=== PATIENT | female | born 1940 | race Caucasian/White ===

== ENCOUNTER 2021-09-09 18:32 | Emergency (ER) | payer MEDICARE, SELFPAY ==
--- NOTE | ~2021-09-09 | XR_ITS ---
EXAMINATION: XR wrist RT min 3V EXAM DATE: 09/09/2021 18:56 INDICATION: Fall, Radial Pain . Initial encounter. TECHNIQUE: Right wrist frontal, frontal with ulnar deviation, oblique and lateral projections obtain ed and reviewed. Comparison is made to prior examination from 09/22/1979. FINDINGS: Right wrist scapholunate joint space is maintained. Acute closed posttraumatic mildly comminuted right radial distal metaphyseal fracture into the distal radial ulnar joint and the radiocarpal joint. There is mild posterior angulation. There is overlying soft tissue swelling. There is acute ulnar styloid base avulsion fracture with about 3 mm distraction. There is overlying s oft tissue swelling. Triangular fibrocartilage calcification. Chondrocalcinosis can be an age related finding, but with ot her possible etiologies including CPPD, parathyroid disorders, hemochromatosis, gout. There is modera te to severe 1st carpometacarpal joint primary osteoarthritis. IMPRESSION: 1. Acute comminuted right distal radial metaphyseal intra-articular fracture. 2. Acute ulnar styloid avulsion fracture. Reviewed, dictated and finalized at location [facility]
[2021-09-09 18:42] VITALS: BP 188/91; PULSE 75; RESP 14; TEMP 36.8; O2SAT 97
--- NOTE | 2021-09-09 18:45 | ED.UPPEXIN ---
HPI - Extremity Injury (Upper) General Chief Complaint: Extremity Injury, Upper Stated Complaint: Right wrist injury Time Seen by Provider: 09/09/21 18:45 Source: patient, family and RN notes reviewed History of Present Illness HPI narrative: Patient is an 81-year-old female who presents the urgent care with a family member with complaints of right wrist injury due to fall at 6 PM this evening. Patient states that she fell against a doorway attempting to catch herself and is having increased pain and swelling of the right wrist. Patient has been wearing a sling. Denies of hitting her head or any loss of consciousness. No other complications from the fall. Patient aware of the plan of care. Some parts of this dictation were generated by voice recognition software and may contain typographical and/or grammatical inaccuracies. Related Data Home Medications Medication Instructions Recorded Confirmed albuterol sulfate 2 puff INHALATION Q4H PRN 09/09/21 09/09/21 atorvastatin 10 mg PO DAILY 09/09/21 09/09/21 carbidopa-levodopa 1 tablet PO .5 X DAILY 09/09/21 09/09/21 gabapentin 100 mg PO TID 09/09/21 09/09/21 lisinopril 40 mg PO DAILY 09/09/21 09/09/21 meloxicam 7.5 mg PO DAILY 09/09/21 09/09/21 olmesartan 40 mg PO DAILY 09/09/21 09/09/21 theophylline 400 mg PO DAILY 09/09/21 09/09/21 Allergies Allergy/AdvReac Type Severity Reaction Status Date / Time propoxyphene [From Darvon] Allergy Mild Rash Verified 09/09/21 18:56 Review of Systems Review of Systems: CONSTITUTIONAL: Denies fever, chills, or sweats. EYES: Denies visual changes, redness, or discharge. ENT: Denies rhinorrhea, congestion, sore throat, or otalgia. CARDIOVASCULAR: Denies chest pain, palpitations, or edema. RESPIRATORY: Denies cough or dyspnea. GASTROINTESTINAL: Denies abdominal pain, nausea, vomiting, or diarrhea. GENITOURINARY: Denies dysuria or hematuria. SKIN: Denies rash or itching. MUSCULOSKELETAL: reports of right wrist pain and swelling due to fall NEUROLOGIC: Denies headache, numbness, or weakness. All other systems reviewed are negative, except as documented in HPI. PMFSH Comments At the time of my signature, I reviewed and agree with the nursing past medical, surgical, social, and family history. There is no relevant family history pertinent to the patient complaint. Exam Narrative: GENERAL: This is a well-nourished, well-developed patient, in no apparent distress. HEAD: normocephalic, atraumatic. EYES: PERRL. Sclera clear/white. Vision is grossly intact. EARS: External ears normal, auditory canals clear and without drainage, TMs normal without perforation. Hearing grossly intact. NOSE: External nose normal with no obvious nasal discharge, nares without redness, no rhinorrhea. THROAT: Mucous membranes moist NECK: Neck supple SKIN: warm, intact with no suspicious lesions or rash, good texture and turgor. NEURO: awake, alert, and oriented to person, place and time. There were no obvious focal neurologic abnormalities. EXTREMITIES: Obvious deformity noted to the right wrist. Range of motion not tested due to pain. Positive strong right radial pulse with capillary refill less than 2 seconds. Course Course Level of Care: Express Care Visit Vital Signs Vital signs: Vital Signs Temperature 98.2 F 09/09/21 18:42 Pulse Rate 75 09/09/21 18:42 Respiratory Rate 14 09/09/21 18:42 Blood Pressure 188/91 H 09/09/21 18:42 Pulse Oximetry 97 09/09/21 18:42 Temperature 98.2 F 09/09/21 18:42 Pulse Rate 75 09/09/21 18:42 Respiratory Rate 14 09/09/21 18:42 Blood Pressure 188/91 H 09/09/21 18:42 Pulse Oximetry 97 09/09/21 18:42 Reviewed-patient is informed that they may have pre-hypertension or hypertension based on a blood pressure reading in the department. I recommend the patient call the primary care provider listed on their discharge instructions or a physician of their choice this week to arrange follow-up for further eval
== END 2021-09-09 19:29 | disposition home or self-care (01) ==
PROVIDERS: Emergency Provider Nurse Practitioner Family; PCP Internal Medicine
DX: S52.571A Other intraarticular fracture of lower end of right radius, initial encounter for closed fracture (principal); S52.611A Displaced fracture of right ulna styloid process, initial encounter for closed fracture; W19.XXXA Unspecified fall, initial encounter; G20 Parkinson's disease; E78.00 Pure hypercholesterolemia, unspecified; I10 Essential (primary) hypertension; M19.90 Unspecified osteoarthritis, unspecified site
CPT/HCPCS: 29125; 73110; 99204; A4565; G0463